=== PATIENT | female | born 1960 | race African-American/Black ===

== ENCOUNTER → 2017-12-20 | Day surgery (SDC) | payer OTHER ==
[~2017-12-20] MED LIST: BARIUM SULFATE 105% 1,900 ML SUSP PO ONE; IV RINGERS,LACTATED 1000ML 1,000 ML IV SCH; LEVO75TA5 PO; PROPOFOL 20 ML IV ONE; PROPOFOL 40 ML IV ONE
--- NOTE | 2017-12-20 09:16 | PDOC1 ---
HISTORY & PHYSICAL H&P Ysabel Hodges [id number] 1960 12/14/2017 09:30 AM 03/07 [facility] OUR PATIENTS COME FIRST [address] [place] [id number] . [phone] Patient: Ysabel Hodges Date of : 1960 Date: 12/14/2017 9:30 AM Visit Type: Consult This 57 year old female presents for Anemia. History of Present Illness: 1. Anemia Type of anemia was acquired for deficiency anemia (iron deficient). Additional information: Patient has iron deficiency anemia. Has been on oral iron. No melena. Does have periodic rectal bleeding and according to her it is from her hemorrhoids. No EGD or colonoscopy before. Not on NSAID's. INTAKE COMMENTS: Intake Comments: patient states she is here for a colonoscopy PROBLEM LIST: Problem Description Onset Date Chronic Clinical Status Notes Benign essential hypertension 04/07/2009 Y Mapped from [facility] Chronic Conditions table on 09/24/2013 by the ICD9 to SNOMED Bulk Mapping Utility. The mapped diagnosis code was Benign essential hypertension, 401.1, added by Danica Plasencia, with responsible provider . Onset date 04/07/2009; last addressed on . Hyperlipidemia 04/07/2009 Y Mapped from [facility] Chronic Conditions table on 2013 by the ICD9 to SNOMED Bulk Mapping Utility. The mapped diagnosis code was Other and unspecified hyperlipidemia, 272.4, added by Danica Plasencia, with responsible provider . Onset date 04/07/2009; last addressed on 02/25/2011. Obesity 04/07/2009 Y Mapped from [facility] Chronic Conditions table on 09/24/2013 by the ICD9 to SNOMED Bulk Mapping Utility. The mapped diagnosis code was Obesity, unspecified, 278.00, added by Danica Plasencia, with responsible provider . Onset date 04/07/2009; last addressed on 04/07/2009. Irregular periods 04/07/2009 Y Mapped from [facility] Chronic Conditions table on by the ICD9 to SNOMED Bulk Mapping Utility. The mapped diagnosis code was Irregular menstrual cycle, 626.4, added by Danica Plasencia, with responsible provider . Onset date 04/07/2009; last addressed on 04/07/2009. Anemia 04/07/2009 Y Mapped from [facility] Chronic Conditions table on 09/24/2013 by the ICD9 to SNOMED Bulk Mapping Utility. The mapped diagnosis code was Anemia, unspecified, 285.9, added by Danica Plasencia, with responsible provider . Onset date 04/07/2009; last addressed on 04/07/2009. Diverticulitis of colon 04/07/2009 Y Mapped from [facility] Chronic Conditions table on 09/24/2013 by the ICD9 to SNOMED Bulk Mapping Utility. The mapped diagnosis code was Diverticulitis of colon (without mention of hemorr, 562.11, added by Danica Plasencia, with responsible provider . Onset date 04/07/2009; last addressed on 04/07/2009. Hypothyroidism, unspecified type 11/28/2015 Type 2 diabetes mellitus without complication, without long-term current use of insulin 11/28/2015 Medications (active prior to today) Medication Name Sig Description Start Date Stop Date Refilled Rx Elsewhere multivitamin tablet take 1 tablet by oral route every day with food 01/07/2014 N cyanocobalamin (vit B-12) 1,000 mcg tablet take 1 tablet by mouth TID a week 05/2013 N ferrous sulfate 325 mg (65 mg iron) tablet take 1 tablet by ORAL route 2 times every day 07/11/2017 07/11/2017 N SYNTHROID 75 MCG TABLET TAKE 1 TABLET DAILY 08/05/2017 08/05/2017 N Medication Reconciliation Medications reconciled today. Medication Reviewed Adherence Medication Name Sig Desc Elsewhere Status taking as directed multivitamin tablet take 1 tablet by oral route every day with food N Verified taking as directed cyanocobalamin (vit B-12) 1,000 mcg tablet take 1 tablet by mouth TID a week N Verified taking as directed ferrous sulfate 325 mg (65 mg iron) tablet take 1 tablet by ORAL route 2 times every day N Verified taking as directed SYNTHROID 75 MCG TABLET TAKE 1 TABLET DAILY N Verified Medications (Added, Continued or Stopped today) Start Date Medication Directions PRN Status PRN Reason Instruction Stop Date 01/07/2014 cyanocobalamin (vit B-12) 1,000 mcg tablet take 1 tablet by mouth TID a week N 07/11/2017 ferrous sulfate 325 mg (65 mg iron) tablet take 1 tablet by ORAL route 2 times every day N 01/07/2014 multivitamin tablet take 1 tablet by oral route every day with food N 08/05/2017 SYNTHROID 75 MCG TABLET TAKE 1 TABLET DAILY N Allergies: Ingredient Reaction (Severity) Medication Name Comment NO KNOWN ALLERGIES Review of Systems System Neg/Pos Details Constitutional Negative Chills, Fever and Malaise. ENMT Negative Sore throat. Eyes Negative Double vision. Respiratory Negative Dyspnea and Wheezing. Cardio Negative Chest pain and Irregular heartbeat/palpitations. GI Positive See HPI. GI Negative See HPI. Negative Dysuria and Hematuria. Endocrine Negative Cold intolerance and Heat intolerance. Psych Negative Anxiety. Integumentary Negative Hives and Rash. MS Negative Joint pain. Quinten/Lymph Negative Easy bleeding and Easy bruising. Allergic/Immuno Negative Food allergies. Reproductive Positive The patient is post-menopausal (The year was 2004). Vital Signs Time BP mm/Hg Pulse /min Resp /min Temp F Ht ft Ht in Ht cm Wt lb Wt kg BMI kg/ m2 BSA m2 O2 Sat% 9:36 AM 142/90 93 16 97.9 5.0 1.00 154.94 246.20 111.674 46.52 2.19 98 Measured By Time Measured by 9:36 AM Gabbie Swygert PHYSICAL EXAM: Exam Findings Details Constitutional Normal Well developed. Eyes Normal Conjunctiva - Right: Normal, Left: Normal. Sclera - Right: Normal, Left: Normal. Nasopharynx Normal Lips/teeth/gums - Normal. Neck Exam Normal Inspection - Normal. Thyroid gland - Normal. Respiratory Normal Inspection - Normal. Auscultation - Normal. Cardiovascular Normal Regular rate and rhythm. No murmurs, gallops, or rubs. Abdomen Normal Inspection - Normal. Anterior palpation - No guarding. No abdominal tenderness. No hepatic enlargement. No spleen enlargement. No hernia. No Ascites. Skin Normal Inspection - Normal. Extremity Normal No edema. Psychiatric Normal Orientation - Oriented to time, place, person & situation. Appropriate mood and affect. Assessment/Plan # Detail Type Description 1. Assessment Iron deficiency anemia due to chronic blood loss (D50.0). Patient Plan schedule colonoscopy and EGD at [facility] Provider Plan Following items have been discussed with the patient if applicable. _x__Patient was advised about the liquid diet carefully. ___Diabetic medication: Do not take following medication on the preparation day - ___Insulin: Reduce or eliminate your insulin as follows- ___Blood thinner: Do not take following blood thinner as follows- _x__Other medication: Continue all other medication on the day of preparation. ___BP medication: Take following BP meds on the day of the procedure at 5:30 AM. with just a sip of water-but do not drink lot of water because this will delay your procedure for anesthesia related issue.- Plan Orders Further diagnostic evaluations ordered today include(s) Colonoscopy , flexible; diagnostic to be performed today and EGD to be performed today. She is to schedule a follow-up visit with Hi Lorenzo MD. Co-Sign Orders Order Ordering Provider Cosigned Name Cosigned Date Cosigner Comments Colonoscopy, flexible; diagnostic Hi Lorenzo 12/14/2017 EGD Hi Lorenzo 12/14/2017 follow-up visit with Hi Lorenzo 12/14/2017 Active Patient Care Team Members Name Contact Agency Type Support Role Relationship Active Date Inactive Date Specialty Prashant Frazier MD Patient provider PCP Family Pract Document Electronically signed: Hi Lorenzo MD 12/14/2017 12:55 PM Document generated by: Hi Lorenzo 12/14/2017 Prashant Frazier MD, Family Practice; Nelson Carrasco MD Internal Medicine; Carri Colon MD, Internal Medicine; Brooks Lorenzo MD Internal Medicine; Hi Lorenzo MD, Gastroenterology; Cam Fajardo MD, Rheumatology, Cathy Hawa RAMSEY ------ 12/20/17 Patient seen and examined. No change in H&P. HI LORENZO MD Dec 20, 2017 09:16
[2017-12-20 11:01] VITALS: BP 146/76
--- NOTE | 2017-12-20 16:50 | RAD ---
Clinical indications: Iron deficiency due to chronic blood loss. Anemia. Incomplete colonoscopy. Procedure: A preliminary upright KUB was performed. Subsequently, a barium enema catheter was inserted into the rectum and the balloon insufflated. Thin liquid barium was infused into the colon up to the cecum. Multiple fluoroscopic spot views were performed. Multiple overhead computerized radiographs were performed as well. The patient tolerated the procedure well without complication. Total fluoroscopic time: 1.3 minutes. Total fluoroscopic spot images: 21. Findings: No free air is seen. No obstructive bowel pattern is seen on the preliminary film. No filling defects are seen. No apple core lesion is seen. Mucosal pattern is unremarkable. No stricture is seen. Multiple diffuse diverticuli are seen. No extravasation of contrast is seen. Retrograde opacification of the appendix is seen. Retrograde opacification of the terminal ileum is seen which is distensible and otherwise unremarkable. Impression: Diffuse colonic diverticulosis. Electronically signed by: Anshu Parikh MD (12/20/2017 4:46 PM) [facility]
--- NOTE | 2017-12-22 14:13 | PATHOLOGY ---
[facility] Accession Number: [id number] . 01 Material submitted: . ASCENDING COLON POLYP . 01 Clinical history: . Anemia . 02 Diagnosis: Colon biopsies, ascending colon polyp: - Tubular adenoma. (JPM:patrice; 12/22/2017) QMS/12/22/2017 . 02 Comment: Sections of the ascending colon biopsy reveal two segments of tubular adenoma and a single segment of colonic mucosa containing a mucosal associated lymphoid aggregate. There is no high-grade dysplasia or evidence of malignancy. (JPM:patrice; 12/22/2017) . 02 Electronically signed: . Marshall Yancey MD, Pathologist NPI- [id number] . 01 Gross description: . The specimen is received in formalin, labeled "Ysabel Hodges, ascending colon polyp", are three goodson soft tissues ranging from 0.2 cm up to 0.4 cm in greatest dimension and measuring 0.7 x 0.4 x 0.2 cm in aggregate, entirely submitted in A1. ([facility]; 12/21/2017) SHS/SHS . 02 Pathologist provided ICD-10: D12.2 . 02 CPT . 067194 Specimen Comment: A courtesy copy of this report has been sent to Specimen Comment: [phone], . Specimen Comment: Report sent to / DR RODRÍGUEZ Performed at: 01 [facility] [address], [place] [id number] MD Sim Wheeler MD Phone: [phone] Performed at: 02 [facility] [address] [place], [place] [id number] MD Marshall Yancey MD Phone: [phone]
== END | disposition home or self-care (01) ==
LOC: SURG 09:03
PROVIDERS: ATTEND Internal Medicine Gastroenterology
DX: D12.2 Benign neoplasm of ascending colon (principal); K57.30 Diverticulosis of large intestine without perforation or abscess without bleeding; D50.0 Iron deficiency anemia secondary to blood loss (chronic); I10 Essential (primary) hypertension; E78.5 Hyperlipidemia, unspecified; E11.9 Type 2 diabetes mellitus without complications; E03.9 Hypothyroidism, unspecified; E66.9 Obesity, unspecified; Z68.42 Body mass index [BMI] 45.0-49.9, adult; Z79.4 Long term (current) use of insulin; Z79.899 Other long term (current) drug therapy
CPT/HCPCS: 43235; 45385; 74270; 88305; J2704; 45380

== ENCOUNTER 2019-09-20 15:27 | Inpatient (IN) | payer OTHER ==
[~2019-09-20] VITALS: Ht 157.5 cm; Wt 128.9 kg
[~2019-09-20 15:27] MED LIST changes: -BARIUM SULFATE 105% 1,900 ML SUSP PO ONE; -IV RINGERS,LACTATED 1000ML 1,000 ML IV SCH; -PROPOFOL 20 ML IV ONE; -PROPOFOL 40 ML IV ONE
--- NOTE | 2019-09-20 16:24 | PHYS DOC ---
Past Medical History Past Medical History: No Pertinent History Additional Past Medical Histor: PT DENIES - htn. Past Surgical History: Other Additional Past Surgical Histo: LAP BAND 3 YRS AGO Alcohol Use: None Drug Use: None General Adult EDM: Chief Complaint: WEAKNESS/GENERALIZED HPI: HPI: Patient is a 59 year old female who is presenting with an anemia hemoglobin 4.9 by her primary doctor sent here for evaluation. Of note patient is a Yazidi and does not want a blood transfusion even if that will result in her . Patient states she has had rectal bleeding for 2 weeks every time she has stool finally now brown again today. no cp but does feel sob She has history of anemia and she received iron infusions twice which helped. Review of Systems: Review of Systems: Constitutional: Denies fever or chills. [] Eyes: Denies change in visual acuity. [] HENT: Denies nasal congestion or sore throat. [] GI: Integument: Denies rash. [] Neurologic: Denies headache, focal weakness or sensory changes. [] Endocrine: Denies polyuria or polydipsia. [] Lymphatic: Denies swollen glands. [] Psychiatric: Denies depression or anxiety. [] Heart Score: Risk Factors: Risk Factors: DM, Current or recent (<one month) smoker, HTN, HLP, family history of CAD, obesity. Risk Scores: Score 0 - 3: 2.5% MACE over next 6 weeks - Discharge Home Score 4 - 6: 20.3% MACE over next 6 weeks - Admit for Clinical Observation Score 7 - 10: 72.7% MACE over next 6 weeks - Early Invasive Strategies Current Medications: Current Medications Medications (Trade) Dose Ordered Sig/Terri Start Time Stop Time Status Last Admin Dose Admin Pantoprazole Sodium (PROTONIX VIAL for IV PUSH) 40 mg 1X ONCE 09/20/19 16:30 09/20/19 16:31 Allergies: Allergies: Allergies Coded Allergies Type Severity Reaction Last Updated Verified No Known Drug Allergies 12/20/17 No Physical Exam: PE: Constitutional: Well developed, well nourished, no acute distress, non-toxic appearance. [] HENT: Normocephalic, atraumatic, bilateral external ears normal, oropharynx moist, no oral exudates, nose normal. [] Eyes: PERRLA, EOMI, conjunctiva normal, no discharge. [] Neck: Normal range of motion, no tenderness, supple, no stridor. [] Cardiovascular:Heart rate regular rhythm, no murmur [] Lungs & Thorax: Bilateral breath sounds clear to auscultation [] Abdomen: Bowel sounds normal, soft, no tenderness, no masses, no pulsatile masses. [] Rectal shows brown stool external hemorrhoid identified tight anal sphincter noted sent to lab for occult blood testing Skin: Pale Back: No tenderness, no CVA tenderness. [] Extremities: No tenderness, no cyanosis, no clubbing, ROM intact, no edema. [] Neurologic: Alert and oriented X 3, normal motor function, normal sensory function, no focal deficits noted. [] Psychologic: Affect normal, judgement normal, mood normal. [] Current Patient Data: Vital Signs: BP in the 150s not tachycardic afebrile oxygenation normal EKG: EKG: [] Normal sinus rhythm rate of 96 no STEMI or ischemia Radiology/Procedures: Radiology/Procedures: [] Impression: FINDINGS: The cardiomediastinal silhouette and pulmonary vessels are within normal limits. The lung and pleural spaces are clear. IMPRESSION: No acute cardiopulmonary process. Electronically signed by: Kayleigh Alxe MD (09/20/2019 4:36 PM) [id number] DICTATED and SIGNED BY: KAYLEIGH ALEX MD DATE: 09/20/191635 Course & Med Decision Making: Course & Med Decision Making Pertinent Labs and Imaging studies reviewed. (See chart for details) [] 59-year-old female with a history of hypothyroidism and anemia who is a Yazidi presenting with a hemoglobin of 4.9. I did have a discussion with her regarding the possibility of a transfusion she said that she adamantly refuses. She is of sound mind she understands the risk. Page sent out to hematology regarding the possibility of iron infusion. Has had some rectal bleeding this could be part of the etiology. brown stool now though. Given this seems reasonable to admit her for observation. Could be hemorrhoids but given severity seems to warrant observation. kieran olson from oncology/hematology. will be happy to consult inpatient for iron infusions , further evaluation. kieran lee for admit. Mackenzie Disclaimer: Mackenzie Disclaimer: This electronic medical record was generated, in whole or in part, using a voice recognition dictation system. Departure Departure Impression: Primary Impression: GI bleed Disposition: ADMITTED INPATIENT Admitting Physician: Madi. Cerda Condition: STABLE Referrals: YURI RODRÍGUEZ (PCP) Justicifation of Admission Dx: Justifications for Admission: Justification of Admission Dx: Yes Comments: hb 4.9 OTILIO SIMENTAL MD Sep 20, 2019 16:24
[2019-09-20] MEDS ORDERED: PANTOPRAZOLE IV PUSH 40 MG VIAL. IVP ONE (16:30)
[2019-09-20 16:31] LABS: BASO % 1 % (0-3); EOS # 0.1 x10^3/uL (0.0-0.7); EOS % 2 % (0-3); LYMPH # 1.1 x10^3/uL (1.0-4.8); LYMPH % 24 % (24-48); MEAN CORPUSCULAR HEMOGLOBIN 17 pg (25-35); MEAN CORPUSCULAR HGB CONC 29 g/dL (31-37); MEAN CORPUSCULAR VOLUME 60 fL (79-100); MONO # 0.4 x10^3/uL (0.0-1.1); MONO % 9 % (0-9); NEUT # 2.9 x10^3/uL (1.8-7.7); NEUT % 65 % (31-73); PLATELET COUNT 277 x10^3/uL (140-400); RED BLOOD COUNT 2.82 x10^6/uL (3.50-5.40); RED CELL DISTRIBUTION WIDTH 20.3 % (11.5-14.5); WHITE BLOOD COUNT 4.5 x10^3/uL (4.0-11.0)
[2019-09-20 16:34] LABS: CALCIUM 8.2 mg/dL (8.5-10.1); GFR 68.4; POTASSIUM 3.7 mmol/L (3.5-5.1)
[2019-09-20 16:35] LABS: HEMOGLOBIN 4.9 g/dL (12.0-15.5)
[2019-09-20 16:35] LABS: FECAL OB PT POSITIVE (NEG)
--- NOTE | 2019-09-20 16:39 | RAD ---
Exam: Chest one view INDICATION: Shortness of breath TECHNIQUE: Frontal view of the chest Comparisons: 04/02/2013 FINDINGS: The cardiomediastinal silhouette and pulmonary vessels are within normal limits. The lung and pleural spaces are clear. IMPRESSION: No acute cardiopulmonary process. Electronically signed by: Kayleigh Whitmore MD (09/20/2019 4:36 PM) [id number]
[2019-09-20 16:54] LABS: PLT ESTIMATE ADEQUATE (ADEQUATE)
[2019-09-20 16:56] LABS: ANISOCYTOSIS MOD; HYPOCHROMIA MARKED; MICROCYTOSIS MARKED; OVALOCYTES FEW; POIKILOCYTOSIS SLIGHT
[2019-09-20 16:57] LABS: POLYCHROMASIA SLIGHT
[2019-09-20] MEDS ORDERED: IRON SUCROSE COMPLEX 200 MG in IV NORMAL SALINE 100ML 100 ML IV ONE (18:30)
[2019-09-20] MEDS: IV NORMAL SALINE 1000ML BAG 1,000 ML IV SCH (18:38)
[2019-09-20 20:00] VITALS: BP 146/69
--- NOTE | 2019-09-20 20:20 | EKG ---
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
[2019-09-20 22:45] VITALS: BP 135/99
[2019-09-21 03:33] VITALS: BP 117/62
[2019-09-21 07:53] VITALS: BP 148/66
--- NOTE | 2019-09-21 09:28 | PDOC2 ---
GI CONSULT Reason For Consult: GI bleed HPI: HPI: 59 y/o female w/ weakness and shortness of breath. GI-menendez, has had some rectal bleeding (always bright red blood - sometimes with stool, sometimes without) for a couple weeks. Last bleeding occurred on Tuesday. Constipation x 2-3 months, no precipitating events. Has to strain to stool despite Dulcolax QHS - also tried Colace, Miralax (stopped working), Mag Citrate (works pretty well). Hem orrhoids burn despite Prep-H. H/o RICKY - iron transfusions w/ hematology in the past. Denies reflux/heartburn, dysphagia, n/v, abd pain, diarrhea, melena, or weight loss. EGD 2018: normal (no biopsies). Colonoscopy 2002: diverticulosis and hemorrhoids. Colonoscopy 2007 and 2017: hyperplastic polyps, diverticulosis, hemorrhoids. BE 2018: diverticulosis. H/o lap band (2010) and reversal (2012). No GB, liver, pancreas, or PUD history. No NSAIDs. Wants to eat, wants help w/ constipation, wants help w/ hemorrhoid pain - wants to stool but doesn't want to hurt. Got IV pantoprazole and IV iron. Declines transfusions for orthodoxy reasons. PMH: PMH: hypothyroidism, HLD lap band (removed), left arm surgery w/ hardware FH: Family History: Other (mother might have had a colon problem) Social History: Smoke: No ALCOHOL: none ROS: GEN: Denies fevers, chills, sweats HEENT: Denies blurred vision, sore throat CV: Denies chest pain RESP: +SOA GI: Per HPI : Denies hematuria, dysuria ENDO: Denies weight changes NEURO: Denies confusion, dizziness MSK: +weakness SKIN: Denies jaundice, pruritus Vitals: Vitals: Vital Signs Date Time Temp Pulse Resp B/P (MAP) Pulse Ox O2 Delivery O2 Flow Rate FiO2 09/21/19 07:53 97.6 76 20 148/66 (93) 94 Room Air 97.6 Labs: Labs: Laboratory Tests Test 09/20/19 16:15 09/20/19 16:22 White Blood Count 4.5 x10^3/uL (4.0-11.0) Red Blood Count 2.82 x10^6/uL (3.50-5.40) Hemoglobin 4.9 g/dL (12.0-15.5) Hematocrit 17.0 % (36.0-47.0) Mean Corpuscular Volume 60 fL (79-100) Mean Corpuscular Hemoglobin 17 pg (25-35) Mean Corpuscular Hemoglobin Concent 29 g/dL (31-37) Red Cell Distribution Width 20.3 % (11.5-14.5) Platelet Count 277 x10^3/uL (140-400) Neutrophils (%) (Auto) 65 % (31-73) Lymphocytes (%) (Auto) 24 % (24-48) Monocytes (%) (Auto) 9 % (0-9) Eosinophils (%) (Auto) 2 % (0-3) Basophils (%) (Auto) 1 % (0-3) Neutrophils # (Auto) 2.9 x10^3/uL (1.8-7.7) Lymphocytes # (Auto) 1.1 x10^3/uL (1.0-4.8) Monocytes # (Auto) 0.4 x10^3/uL (0.0-1.1) Eosinophils # (Auto) 0.1 x10^3/uL (0.0-0.7) Basophils # (Auto) 0.0 x10^3/uL (0.0-0.2) Platelet Estimate Adequate (ADEQUATE) Polychromasia Slight Hypochromasia Marked Poikilocytosis Slight Anisocytosis Mod Microcytosis Marked Ovalocytes Few Sodium Level 139 mmol/L (136-145) Potassium Level 3.7 mmol/L (3.5-5.1) Chloride Level 104 mmol/L (98-107) Carbon Dioxide Level 24 mmol/L (21-32) Anion Gap 11 (6-14) Blood Urea Nitrogen 15 mg/dL (7-20) Creatinine 1.0 mg/dL (0.6-1.0) Estimated GFR (Cockcroft-Gault) 68.4 Glucose Level 183 mg/dL (70-99) Calcium Level 8.2 mg/dL (8.5-10.1) Troponin I Quantitative 0.020 ng/mL (0.000-0.055) Stool Occult Blood Positive (NEG) Allergies: Coded Allergies: No Known Drug Allergies (Unverified , 12/20/17) Medications: Current Medications Medications (Trade) Dose Ordered Sig/Terri Route PRN Reason Start Time Stop Time Status Last Admin Dose Admin Pantoprazole Sodium (PROTONIX VIAL for IV PUSH) 40 mg 1X ONCE IVP 09/20/19 16:30 09/20/19 16:31 DC 09/20/19 16:50 Sodium Chloride 1,000 ml @ 60 mls/hr [id number] IV 09/20/19 17:30 09/21/19 17:29 09/20/19 18:38 Iron Sucrose 200 mg/Sodium Chloride 110 ml @ 55 mls/hr 1X ONCE IV 09/20/19 18:30 09/20/19 20:29 DC 09/20/19 19:18 Imaging: Imaging: CXR IMPRESSION: No acute cardiopulmonary process. PE: GEN: NAD HEENT: Atraumatic, PERRL LUNGS: CTAB HEART: RRR ABD: NABS, S/NT, large EXTREMITY: No edema SKIN: No rashes, no jaundice NEURO/PSYCH: A & O 3 A/P: A/P: Weakness, SOA Hematochezia - last on Tuesday Change in bowel habits/constipation, rectal pain Profound microcytic anemia, h/o RICKY CRC screen - UTD Diverticulosis, hemorrhoids H/o lap band/reversal -- Needs to take iron chronically - already give IV here. Declines blood transfusions. Try clears, treat constipation more aggressively. Many questions/concerns about hemorrhoids - will return to discuss w/ Dr. Meza. SITA CASTILLO Sep 21, 2019 09:28
[2019-09-21 11:21] VITALS: BP 145/74
[2019-09-21] MEDS ORDERED: BISACODYL 5 MG TABLET.DR. PO ONE (11:30)
[2019-09-21] MEDS ORDERED: MAGNESIUM CITRATE 296 ML SOLUTION. PO ONE ×2 (11:30→13:00)
[2019-09-21] MEDS ORDERED: PHENYLEPH/MINERAL OIL/PETROLAT RECTAL OINTMENT TUBE. RC PRN (11:30)
--- NOTE | 2019-09-21 11:39 | PDOC2 ---
CONSULT Date of Consult Date of Consult DATE: 09/21/19 TIME: 11:24 Reason for Consult Reason for Consult: Iron deficiency anemia and acute GI bleed in a Jehovah witness patient Referring Physician Referring Physician: Dr. Piper Identification/Chief Complaint Chief Complaint Bloody stools and fatigue from anemia Problems: (1) Iron deficiency anemia due to chronic blood loss (2) Lower GI bleed Source Source: Chart review, Patient History of Present Illness Reason for Visit: Ysabel Greco is 59-year-old -[place] female who has been admitted to the hospital after presenting with fatigue and hematochezia. Patient reports prior history of iron deficiency anemia secondary to gastrointestinal bleeding. She is a Roman Catholic and had previously received care from Dr. Green. She reports that she had received IV iron at the time and this is compatible with her anabaptist believes. I also spoke with a medical assistant per diem with her congregational who also reported that she is able to receive erythrocyte stimulating agents if these are recommended. She reports that she has had bloody stools and constipation for the past few months. This is been more notable recently. She denies hematemesis or bleeding elsewhere. She has been taking oral iron supplementation. We have been consulted for evaluation and management of anemia. Past Medical History Cardiovascular: No pertinent hx Pulmonary: No pertinent hx GI: Hemorrhoids Heme/Onc: Iron deficiency Anemia ENT: No pertinent hx Renal/: No pertinent hx Past Surgical History Past Surgical History: No pertinent history Family History Family History No family history of cancer or hematologic disease Social History No ALCOHOL: none Current Problem List Problem List Problems Medical Problems: (1) GI bleed Status: Acute Current Medications Current Medications Current Medications Pantoprazole Sodium (PROTONIX VIAL for IV PUSH) 40 mg 1X ONCE IVP Last ad ministered on 09/20/19at 16:50; Start 09/20/19 at 16:30; Stop 09/20/19 at 16:31; Status DC Sodium Chloride 1,000 ml @ 60 mls/hr [id number] IV Last administered on 09/20/19at 18:38; Start 09/20/19 at 17:30; Stop 09/21/19 at 17:29 Iron Sucrose 200 mg/Sodium Chloride 110 ml @ 55 mls/hr 1X ONCE IV Last administered on 09/20/19at 19:18; Start 09/20/19 at 18:30; Stop 09/20/19 at 20:29; Status DC Bisacodyl (Dulcolax Tab) 10 mg 1X ONCE PO ; Start 09/21/19 at 11:30; Stop 09/21/19 at 11:31 Magnesium Citrate (Citroma) 296 ml 1X ONCE PO ; Start 09/21/19 at 11:30; Stop 09/21/19 at 11:31 Phenyleph/Shark Oil/Min Oil/Petrol (Preparation H) 1 venita PRN QID PRN RC RECTAL PAIN; Start 09/21/19 at 11:30 Active Scripts Active Reported Levothyroxine Sodium 75 Mcg Tablet 75 Mcg PO DAILYAC No Known Medications Prior To Admisstion (Info) Each 1 Each Allergies Allergies: Coded Allergies: No Known Drug Allergies (Unverified , 12/20/17) ROS General: YES: Fatigue Hematological and Lymphatic: YES: Bleeding Problems, Pallor Gastrointestinal: Yes Constipation, Yes Hematochezia Physical Exam General: Alert, Oriented X3 HEENT: Atraumatic Lungs: Clear to auscultation Heart: Regular rate, Normal S1, Normal S2 Abdomen: Soft, No tenderness, No hepatosplenomegaly Extremities: No edema Skin: No rashes Neuro: Normal gait Vitals VITALS Vital Signs Date Time Temp Pulse Resp B/P (MAP) Pulse Ox O2 Delivery O2 Flow Rate FiO2 09/21/19 11:21 98.7 78 20 145/74 (97) 96 Room Air 98.7 Labs Labs Laboratory Tests Test 09/20/19 16:15 09/20/19 16:22 White Blood Count 4.5 x10^3/uL (4.0-11.0) Red Blood Count 2.82 x10^6/uL (3.50-5.40) Hemoglobin 4.9 g/dL (12.0-15.5) Hematocrit 17.0 % (36.0-47.0) Mean Corpuscular Volume 60 fL (79-100) Mean Corpuscular Hemoglobin 17 pg (25-35) Mean Corpuscular Hemoglobin Concent 29 g/dL (31-37) Red Cell Distribution Width 20.3 % (11.5-14.5) Platelet Count 277 x10^3/uL (140-400) Neutrophils (%) (Auto) 65 % (31-73) Lymphocytes (%) (Auto) 24 % (24-48) Monocytes (%) (Auto) 9 % (0-9) Eosinophils (%) (Auto) 2 % (0-3) Basophils (%) (Auto) 1 % (0-3) Neutrophils # (Auto) 2.9 x10^3/uL (1.8-7.7) Lymphocytes # (Auto) 1.1 x10^3/uL (1.0-4.8) Monocytes # (Auto) 0.4 x10^3/uL (0.0-1.1) Eosinophils # (Auto) 0.1 x10^3/uL (0.0-0.7) Basophils # (Auto) 0.0 x10^3/uL (0.0-0.2) Platelet Estimate Adequate (ADEQUATE) Polychromasia Slight Hypochromasia Marked Poikilocytosis Slight Anisocytosis Mod Microcytosis Marked Ovalocytes Few Sodium Level 139 mmol/L (136-145) Potassium Level 3.7 mmol/L (3.5-5.1) Chloride Level 104 mmol/L (98-107) Carbon Dioxide Level 24 mmol/L (21-32) Anion Gap 11 (6-14) Blood Urea Nitrogen 15 mg/dL (7-20) Creatinine 1.0 mg/dL (0.6-1.0) Estimated GFR (Cockcroft-Gault) 68.4 Glucose Level 183 mg/dL (70-99) Calcium Level 8.2 mg/dL (8.5-10.1) Troponin I Quantitative 0.020 ng/mL (0.000-0.055) Stool Occult Blood Positive (NEG) Laboratory Tests Test 09/20/19 16:15 09/20/19 16:22 White Blood Count 4.5 x10^3/uL (4.0-11.0) Red Blood Count 2.82 x10^6/uL (3.50-5.40) Hemoglobin 4.9 g/dL (12.0-15.5) Hematocrit 17.0 % (36.0-47.0) Mean Corpuscular Volume 60 fL (79-100) Mean Corpuscular Hemoglobin 17 pg (25-35) Mean Corpuscular Hemoglobin Concent 29 g/dL (31-37) Red Cell Distribution Width 20.3 % (11.5-14.5) Platelet Count 277 x10^3/uL (140-400) Neutrophils (%) (Auto) 65 % (31-73) Lymphocytes (%) (Auto) 24 % (24-48) Monocytes (%) (Auto) 9 % (0-9) Eosinophils (%) (Auto) 2 % (0-3) Basophils (%) (Auto) 1 % (0-3) Neutrophils # (Auto) 2.9 x10^3/uL (1.8-7.7) Lymphocytes # (Auto) 1.1 x10^3/uL (1.0-4.8) Monocytes # (Auto) 0.4 x10^3/uL (0.0-1.1) Eosinophils # (Auto) 0.1 x10^3/uL (0.0-0.7) Basophils # (Auto) 0.0 x10^3/uL (0.0-0.2) Platelet Estimate Adequate (ADEQUATE) Polychromasia Slight Hypochromasia Marked Poikilocytosis Slight Anisocytosis Mod Microcytosis Marked Ovalocytes Few Sodium Level 139 mmol/L (136-145) Potassium Level 3.7 mmol/L (3.5-5.1) Chloride Level 104 mmol/L (98-107) Carbon Dioxide Level 24 mmol/L (21-32) Anion Gap 11 (6-14) Blood Urea Nitrogen 15 mg/dL (7-20) Creatinine 1.0 mg/dL (0.6-1.0) Estimated GFR (Cockcroft-Gault) 68.4 Glucose Level 183 mg/dL (70-99) Calcium Level 8.2 mg/dL (8.5-10.1) Troponin I Quantitative 0.020 ng/mL (0.000-0.055) Stool Occult Blood Positive (NEG) Assessment/Plan Assessment/Plan Ysabel Hodges is a 59-year-old -[place] female who has been admitted for symptomatic iron deficiency anemia secondary to GI bleed Assessment: Iron deficiency anemia Lower GI bleed from hemorrhoids Recommendations: Received iron sucrose 200 mg IV on 09/20/2019 Recommend additional IV iron supplementation with iron sucrose 200 mg IV daily for 2 additional days Recommend adding oral B12 and folate acid supplementation Agree with GI consultation Consider general surgery referral for evaluation and surgical management of hemorrhoids given recurrent presentation with GI bleeding and severe iron deficiency anemia Thank you for the consult Papa Linares MD Medical Oncology/Hematology Ph: [phone] CINDY LINARES MD Sep 21, 2019 11:39
[2019-09-21] MEDS: IV NORMAL SALINE 1000ML BAG 1,000 ML IV SCH (13:01)
[2019-09-21] MEDS ORDERED: POLYETHYLENE GLYCOL 3350 17 GM PACKET. PO PRN (15:00)
[2019-09-21 15:31] VITALS: BP 140/66
--- NOTE | 2019-09-21 16:16 | HP ---
ADMIT DATE: 09/20/2019 HISTORY OF PRESENT ILLNESS: The patient is a 59-year-old -[place] female patient who came to the Emergency Room of [facility] complaining of generalized weakness and shortness of breath. Apparently, she was seen by her primary care physician, Dr. Frazier as her hemoglobin was only 4.9. The patient is a Jehovah Witness and does not want any blood transfusion even if that would result in her . She stated that she has rectal bleeding for 2 weeks. Every time she has stool finally now brown again. She denied any chest pain, but did complain of shortness of breath. She has had a history of anemia and has received iron infusions twice and that has helped before. She said that this is the third time she has this. Last time her hemoglobin dropped down to 7 and according to her, she had a colonoscopy done about 2 years ago. She claimed that she has internal hemorrhoids that are bleeding and that the source of her bleeding. On arrival to the Emergency Room, her lab work showed hemoglobin was 4.9, hematocrit 17 with normal white cell count and platelets. Her chemistry was unremarkable and was admitted and was given dose of Venofer and we did consult the in service education teacher as well as the special tester. PAST MEDICAL HISTORY: Significant for hypothyroidism, possible obstructive sleep apnea and obviously chronic anemia. She denied any sickle cell anemia or sickle cell trait in her family. PAST SURGICAL HISTORY: Significant for left forearm fracture, status post open reduction and internal fixation. She had her lap band in 2010, was removed in 2012. She has had colonoscopy as well as tonsillectomy. ALLERGIES: She has no known drug allergies. MEDICATIONS: She is on levothyroxine 75 mcg once a day. FAMILY HISTORY: She has 2 brothers and 4 sisters. One sister at age of 58 because of diabetes, the others are healthy. Mother at age of 49 because of myocardial infarction. Father at the age of 72. SOCIAL HISTORY: She is , has 3 daughters and 6 grandchildren. She does not smoke, drinks alcohol or uses recreational drugs. 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 PHYSICAL EXAMINATION: GENERAL: On arrival to the Emergency Room, she looked well and was clearly in no apparent distress. She was pale, but no jaundice, cyanosis or thyromegaly. No jugular venous distention. No limb edema. VITAL SIGNS: Her heart rate was 83, blood pressure was 146/69, temperature was 98.6, respiratory rate was 18 and oxygen saturation was 98%. HEAD, EYES, EARS, NOSE AND THROAT: Showed normocephalic, atraumatic. NECK: Supple. HEART: Showed normal first and second heart sounds. No gallop or murmur. CHEST: Clear to auscultation. No crepitation or rhonchi. ABDOMEN: Distended, soft, nontender. NEUROLOGIC: She is awake, alert, responding appropriately. All cranial nerves are intact. EXTREMITIES: She moves extremities without difficulty. She ambulates without assistance or assistive devices. LABORATORY DATA: As of yesterday showed hemoglobin 4.5, hematocrit 4.9, hematocrit 17, MCV was 60 and platelet count 277,000. Her chemistry showed a serum sodium 139, potassium 3.7, chloride 104, bicarbonate 24, anion gap of 11, BUN 15, creatinine 1, estimated GFR was 68 mL per minute. Her glucose 183, calcium was 8.2. ASSESSMENT: This is a 59-year-old -[place] female patient with severe anemia that is microcytic, hypochromic. Her hemoglobin was 4.9, hematocrit 17, likely due to iron deficiency anemia due to gastrointestinal blood loss. According to her, she has hemorrhoids. Apparently, this has happened before; however, no attempts were made to address her hemorrhoids. She has had lap bands before that was removed. She has hypothyroidism. She denied using any nonsteroidal anti-inflammatory medication. My plan is that I did order Venofer 200 mg once a day and/or consult the special tester as well as in service education teacher to assist with management. YURI CURRIE MD DR: ILEANA/jumana JOB#: [id number] / [id number]
--- NOTE | 2019-09-21 16:52 | NUR ---
SW following. Reviewed chart and spoke with RN. Pt is being seen by Dr. Piper. Pt from home. Pt on room air and IV fluids. GI consulted. Hgb 4.9. SW to follow.
[2019-09-21] MEDS: IRON SUCROSE COMPLEX 200 MG in IV NORMAL SALINE 100ML 100 ML IV SCH (17:07)
[2019-09-21] MEDS: CYANOCOBALAMIN (VITAMIN B-12) 1,000 MCG TABLET. PO SCH (17:18)
[2019-09-21] MEDS: FOLIC ACID 1 MG TABLET. PO SCH (17:18)
[2019-09-21 19:00] VITALS: BP 124/48
[2019-09-21 23:24] VITALS: BP 126/57
[2019-09-22 03:18] VITALS: BP 126/59
[2019-09-22 07:00] VITALS: BP 147/77
[2019-09-22] MEDS ORDERED: POLYETHYLENE GLYCOL 3350 17 GM PACKET. PO SCH (09:00)
[2019-09-22] MEDS: CYANOCOBALAMIN (VITAMIN B-12) 1,000 MCG TABLET. PO SCH (09:29)
[2019-09-22] MEDS: IRON SUCROSE COMPLEX 200 MG in IV NORMAL SALINE 100ML 100 ML IV SCH (09:29)
[2019-09-22] MEDS: FOLIC ACID 1 MG TABLET. PO SCH (09:29)
[2019-09-22] MEDS ORDERED: CYAN100016 SL (11:12)
[2019-09-22] MEDS ORDERED: FERR324T14 PO (11:12)
[2019-09-22] MEDS ORDERED: FOLI20CA PO (11:12)
[2019-09-22 11:20] VITALS: BP 127/68
--- NOTE | 2019-09-22 11:52 | DS ---
DATE OF DISCHARGE: 09/20/2019 HOSPITAL COURSE: The patient is a 59-year-old female patient who was admitted with generalized weakness and shortness of breath. She was found to be profoundly anemic with severe iron deficiency anemia. Her hemoglobin was 4.9, hematocrit 17, MCV only 60. She is Worship and does not take any blood products. She was seen in consultation by the child day care center worker as well as culvert installer. She has received a total of 600 mg of Venofer IV as well as cyanocobalamin, folic acid and basically a decision was made to discharge her home to continue on all these hematinic. PHYSICAL EXAMINATION: GENERAL: When I saw her this afternoon, she was sitting propped up in bed, in no apparent respiratory distress. She is awake, alert, responding appropriately. All cranial nerves intact. She moves extremities without difficulty. VITAL SIGNS: Her heart rate was 78, blood pressure 147/77, temperature was 99, respiratory rate was 16, and oxygen saturation was 94%. HEAD, EYES, EARS, NOSE AND THROAT: Showed normocephalic, atraumatic. NECK: Supple. HEART: Showed normal first and second heart sounds. No gallop or murmur. CHEST: Clear to auscultation. No crepitation or rhonchi. ABDOMEN: Distended, soft, nontender. NEUROLOGIC: She is grossly intact. Her intake and output were incompletely recorded. LABORATORY DATA: On admission showed a white cell count 4500, hemoglobin 4.9, hematocrit 17, MCV 60 and platelet count 277,000. Her chemistry showed a serum sodium 139, potassium 3.7, chloride 104, bicarbonate 24, anion gap of 11, BUN 15, creatinine 1, estimated GFR was 68 mL per minute. Her glucose was 183, calcium was 8.2. DISCHARGE MEDICATIONS: She was discharged home to continue on cyanocobalamin, vitamin B12 1000 mcg sublingually daily, ferrous fumarate 325 mg twice a day, folic acid 1 mg once a day as well as levothyroxine 75 mcg once a day. FINAL DISCHARGE DIAGNOSES: Severe iron deficiency anemia for which she has received so far 600 mg of iron sucrose. She was discharged on vitamin B12 and folic acid. She was seen by the child day care center worker as well as we did not recommend any further imaging or procedures as she has had colonoscopy before. YURI CURRIE MD DR: Jose Martin JOB#: [id number] / [id number]
--- NOTE | 2019-09-22 12:20 | NUR ---
Pt discharged to home with spouse. Discharge instructions reviewed and she verbalized understanding.
--- NOTE | 2019-09-24 09:32 | PN ---
DATE: 09/20/2019 SUBJECTIVE: The patient was admitted yesterday with generalized weakness and shortness of breath. She was found to be extremely anemic with a hemoglobin of 4.9 and hematocrit 17. She unfortunately is a Jehovah Witness and she does not accept any blood products. She apparently attributes her anemia to blood loss from her hemorrhoids, but denied any hematemesis, hemoptysis, or epistaxis. Denied any vaginal bleeding or hematuria. She was seen by the discharge rn who would continue to supplement her with iron and also oral B12 and folic acid and we have consulted the embroidery assistant ____. DICTATION ENDS HERE YURI CURRIE MD DR: ILEANA/jumana JOB#: [id number] / [id number]
[2019-09-24 22:08] LABS: GLIA IGA 5 units (0-19); GLIA IGG 3 units (0-19); TRANSGLUTAMINASE IGA AB <2 U/mL (0-3); TRANSGLUTAMINASE IGG AB <2 U/mL (0-5)
== END 2019-09-22 12:25 | disposition home or self-care (01) | DRG 378 ==
LOC: ER 15:27 → 6 SOUTH 16:00 → ER 19:42
PROVIDERS: ADMIT Internal Medicine; ATTEND Internal Medicine
DX: K55.21 Angiodysplasia of colon with hemorrhage (principal); Z68.43 Body mass index [BMI] 50.0-59.9, adult; K92.1 Melena; K64.8 Other hemorrhoids; E03.9 Hypothyroidism, unspecified; D50.0 Iron deficiency anemia secondary to blood loss (chronic); K59.00 Constipation, unspecified; E78.5 Hyperlipidemia, unspecified; D50.9 Iron deficiency anemia, unspecified; Z87.19 Personal history of other diseases of the digestive system; Z83.3 Family history of diabetes mellitus; Z82.49 Family history of ischemic heart disease and other diseases of the circulatory system; E66.01 Morbid (severe) obesity due to excess calories
CPT/HCPCS: 36415; 71045; 80048; 82274; 83516; 84484; 85025; 93005; 96361; 96365; 96375; 99285; C9113; J1756; J7030; G0378

== ENCOUNTER → 2019-09-25 | Outpatient (CLI) | payer OTHER ==
[2019-09-22 11:20] VITALS: BP 127/68
[~2019-09-25] MED LIST changes: +CYAN100016 SL; +FERR324T14 PO; +FOLI20CA PO
--- NOTE | 2019-09-25 16:09 | RAD ---
INDICATION: Reason: LT ARM PAIN/SWELLING / Spl. Instructions: / History: COMPARISON: None. TECHNIQUE: Grayscale, color and doppler ultrasound images were obtained of the left upper extremity venous vasculature. No thrombus identified in the internal jugular, subclavian, axillary, brachial, basilic, radial or ulnar veins. Thrombus within cephalic vein. IMPRESSION: 1. Thrombus within the left cephalic vein. Report was called to the ordering provider by the home security alarm installer performing the exam at exam completion. Electronically signed by: Macho Champion MD (09/25/2019 4:06 PM) [id number]
== END | disposition home or self-care (01) ==
LOC: US 15:25
PROVIDERS: ATTEND Family Medicine
DX: I80.02 Phlebitis and thrombophlebitis of superficial vessels of left lower extremity (principal); I82.612 Acute embolism and thrombosis of superficial veins of left upper extremity
CPT/HCPCS: 93971